=== PATIENT | female | born 1970 | race Caucasian/White ===

== ENCOUNTER 2018-08-22 16:09 | Inpatient (IN) | payer MEDICARE, MEDICAID ==
[~2018-08-22] VITALS: Ht 172.7 cm; Wt 240.1 kg
[2018-08-22] VITALS (15 sets, daily range): BP systolic 66–104; BP diastolic 25–83
--- NOTE | ~2018-08-22 | CN ---
PATIENT NAME:KATIA ROSSI MEDICAL RECORD: [id number] : 66 LOCATION:D. D.2101 ADMIT DATE: 08/22/18 ACCOUNT: [id number] CONSULTING PHYSICIAN: MIHAI GARZA MD REFERRING PHYSICIAN: BAO BRIGGS MD DATE OF CONSULTATION: 08/31/2018 CONSULT REQUESTING PHYSICIAN: Matthew Moseley MD REASON FOR CONSULTATION: Hypoxia and dyspnea. HISTORY OF PRESENT ILLNESS: Ms. Rossi is a 47-year-old female who is morbidly obese, obstructive sleep apnea, and history of DVT and pulmonary embolism times 2. She was on chronic Xarelto and that has been held on this admission. According to the patient, she felt lightheaded and weak. She came into the ER. Her systolic blood pressure was in 70s and 80s and positive Hemoccult stool, but review by Dr. Kuhn and her hematocrit and hemoglobin were stable and there was no evidence of active GI bleeding. She has a cough without sputum production. A little bit sore throat. No fever or chills. No night sweats. REVIEW OF THE SYSTEMS: Mainly in the history of present illness. PAST MEDICAL HISTORY: 1. History of PE and DVT times 2 in the past. 2. Obstructive sleep apnea. She is on CPAP machine. 3. History of allergies. 4. Hypertension. 5. History of GI bleed in December of this year. 6. She has chronic back pain. PAST SURGICAL HISTORY: 1. Hysterectomy. 2. Herniorrhaphy. 3. Cyst removed from ovaries. ALLERGIES: SHE IS ALLERGIC TO CODEINE. MEDICATIONS: 1. She was on Xarelto and that has been on hold. 2. She is on vancomycin now IV and cefepime IV. PERSONAL AND SOCIAL HISTORY: Probably, she is still smoking. FAMILY HISTORY: Significant for lung disease and cancer. REVIEW OF THE SYSTEMS: The detail is not obtainable. PHYSICAL EXAMINATION: GENERAL: The patient is morbidly obese. VITAL SIGNS: Blood pressure is 115/65, pulse is 107, respiration is 22, temperature is 98.6, and SpO2 is 92% on 8 liters nasal cannula. HEENT: Conjunctivae are pink. Sclerae are not icteric. NECK: Neck is supple. No JVD. CHEST: The chest excursion is minimal on both sides. There is no wheeze and no CONSULT REPORT [id number] KATIA ROSSI. HEART: Rhythm regular. Normal sound. No murmur. ABDOMEN: Abdomen is soft. Bowel sounds present. No hepatosplenomegaly. RECTAL: Deferred. EXTREMITIES: No cyanosis. No clubbing. No pedal edema. CENTRAL NERVOUS SYSTEM: The patient is awake and alert. There is no obvious cranial nerve abnormality. The gait was not tested. LABORATORY DATA: CBC; WBC is 24.5, hemoglobin is 10.9, hematocrit 34.7, and the platelet count is 149. Chemistry; sodium 135, potassium 5.2, BUN is 30, creatinine 1.3. Serology; the IgM antibody for Yovanny-Toledo virus is more than 160. Influenza is negative. DIAGNOSTIC DATA: Cardiac echo, the right ventricular systolic pressure is 20.1. CT scan of the chest on 22 of August; the heart is normal in size. There is no pericardial effusion. There is no lung infiltrate. There is no adenopathy. IMPRESSION: 1. Nnavy-rn-nrlmaym hypoxic respiratory failure. The etiology is not clear. The patient's PA pressure is normal. 2. Near syncopal episode. 3. History of DVT and PE times 2. 4. Morbid obesity. 5. Obesity-hypoventilation syndrome. 6. Obstructive sleep apnea. 7. Leukocytosis. 8. Possible infectious mononucleosis. 9. Hyperkalemia. RECOMMENDATION: 1. Continue vancomycin and cefepime. 2. Consult ID. 3. Check the ABG. 4. Continue BiPAP at night. 5. Supplemental oxygen to keep the SpO2 above 90%. 6. Followup labs and chest radiograph. Dr. Moseley, thank you for involving me in the care of Ms. Rossi. TRANSINT:[id number] Voice Confirmation ID: [id number] DOCUMENT ID: [id number] MIHAI GARZA MD at 1711 CC: [id number] DICTATION DATE: 08/31/18 1512 SIGNAL INTELLIGENCE/ELECTRONIC WARFARE: 08/31/18 1620 DIS IN 09/05/18 [facility] [address] [place] [address]
--- NOTE | ~2018-08-22 | MORECARE ---
CASE MANAGEMENT DISCHARGE SUMMARY PATIENT: KATIA MARTINEZ UNIT: [id number] ADM DATE: 08/22/18 AGE: 47 : 66 SEX: F ROOM/BED: D.2101 AUTHOR: BIANCA,DOC PHYSICIAN: REFERRING PHYSICIAN: BAO BRIGGS MD DATE OF SERVICE: 08/28/18 Discharge Plan Patient Name: KATIA MARTINEZ [facility] [facility] 1970 Planned Disposition: Inpatient Rehab Anticipated Discharge Date: 08/29/18 Discharge Date: Expected LOS: 7 Initial Reviewer: [email or web address] Initial Review Date: 08/28/2018 Generated: 08/28/18 6:10 pm Comments DCP- Discharge Planning Updated by [id number]: Indra Green on 08/28/18 4:[address] Patient Name: KATIA MARTINEZ Admission Status: ER Accout number: [id number] Admission Date: 08-22-2018 : 1970 Admission Diagnosis:ACUTE KIDNEY FAILURE, UNSPECIFIED Attending: BAO BRIGGS Current LOS: 6 Anticipated DC Date: 08-29-2018 Planned Disposition: Inpatient Rehab Primary Insurance: MEDICARE A & B PLANNED EXTERNAL PROVIDER: [facility] INPATIENT REHAB Discharge Planning Comments: CM RECEIVED ORDER FOR INPATIENT REHAB PRESCREENING, MET WITH PT IN ROOM TO DISCUSS DISCHARGE PLANNING AND NEEDS. PT REPORTS LIVING AT HOME INDEPENDENTLY AND HER SISTER IS IN THE HOME ALSO IF NEEDED. PT HAS CANE, CPAP AND WALKER FROM [facility]. PT HAS PERSONAL CARE, [facility], 21 HOURS PER WEEK. CM DISCUSSED AVAILABILITY OF HOME HEALTH, REHAB SERVICES AND MEDICAL EQUIPMENT. PT WILL THINK ABOUT INPATIENT REHAB AND IS CONSIDERING JUST GOING HOME SHE IS NOT ABLE TO GET ANY SLEEP IN THE HOSPITAL. PT REPORTS FAMILY WILL PICK HER UP FOR DISCHARGE HOME. IMPORTANT MESSAGE FROM MEDICARE PROVIDED AND EXPLAINED. CM WAITING INPATIENT REHAB PRESCREENING RESULTS FROM [facility] INPATIENT REHAB. Hollow Handle Bench Worker: Indra Green DCPIA - Discharge Planning Initial Assessment Updated by [id number]: Indra Green on 08/28/18 5:04 pm * Is the patient Alert and Oriented? Yes * How many steps to enter\exit or inside your home? ELEVATOR * PCP DR. RONNI TA - PT REPORTS SHE WILL NEVER RETURN TO THIS PRIMARY CARE DOCTOR * Pharmacy [facility] * Preadmission Environment Home with Family * ADLs Independent * Equipment Cane CPAP Walker * Other Equipment [facility] - MEDICAL EQUIPMENT PROVIDER * List name and contact numbers for known caregivers / representatives who currently or will assist patient after discharge: RODO MARTINEZ, BROTHER, * Verbal permission to speak to the caregivers and representatives has been obtained from the patient. N/A * Community resources currently utilized Private Duty Care * Please name any agencies selected above. [facility], M,T,W,F; 21 HOURS PER WEEK * Additional services required to return to the preadmission environment? No * Can the patient safely return to the preadmission environment? Yes * Has this patient been hospitalized within the prior 30 days at any hospital? No Coverage Notice Reviewer: [id number] Shani Green Notice Issued Date-Time: 08/28/2018 14:15 Notice Type: IM Discharge Notice Notice Delivered To: Patient Relationship to Patient: Nurse Licensed Practical Name: Delivery Method: HAND - Hand Delivered Janie Days: Prior Verbal Notification: Recipient Understood Notice: Yes Recipient Signature: Yes Med Rec Note Co-signed by Attending: Coverage Notice Comment: Patient Name: KATIA MARTINEZ Page [phone] at 1711 All edits/amendments must be made on the electronic document DICTATION DATE: 08/28/181709 CORPORATE VP ADVERTISING & ONLINE: KASSIE 08/28/181709 RPT#: [id number] DC DATE: STATUS: ADM IN [facility] [address] [place] [address] END OF REPORT
--- NOTE | ~2018-08-22 | MORECARE ---
CASE MANAGEMENT DISCHARGE SUMMARY PATIENT: KATIA MARTINEZ UNIT: [id number] ADM DATE: 08/22/18 AGE: 47 : 66 SEX: F ROOM/BED: D.2101 AUTHOR: BIANCA,DOC PHYSICIAN: REFERRING PHYSICIAN: BAO BRIGGS MD DATE OF SERVICE: 09/11/18 Discharge Plan Patient Name: [facility]ARTINEZ [facility] [facility] 1970 Planned Disposition: Inpatient Rehab Anticipated Discharge Date: 09/05/18 Discharge Date: 09/05/2018 Expected LOS: 14 Initial Reviewer: [email or web address] Initial Review Date: 08/28/2018 Generated: 09/11/18 9:06 am Comments DCP- Discharge Planning Updated by [email or web address]: Indra Green on 09/05/18 9:[address] Patient Name: KATIA MARTINEZ Encounter No: [id number] : 1970 Primary Insurance: MEDICARE A & B Anticipated DC Date: 09-06-2018 Planned Disposition: Inpatient Rehab External Planned Provider: [facility] INPATIENT REHAB DCP follow-up note: CM RECEIVED INPATIENT REHAB PRESCREENING ORDER, SPOKE TO PT IN ROOM REGARDING REHAB OPTIONS AND LOCATIONS. PT WOULD LIKE TO BE CONSIDERED FOR REHAB AT [place], DOES NOT WANT TO CONSIDER GOING TO A RETIREMENT FACILITY FOR REHAB. PT STATES SHE IS "EXCITED" ABOUT GOING TO REHAB AND REPORTS HER GOAL IS TO REHAB AND GO HOME. CM DISCUSSED THERAPY DOCUMENTING [facility] OF THERAPY; PT STATES SHE IS NOT REFUSING, SHE HAS ASKED THEM TO COME BACK LATER AND THEY DO NOT. PT REPORTS THE DAYS THAT HAPPENED, SHE EITHER HAD DIARREAH OR WAS URINATING FREQUENTLY DUE TO HAVING LASIX. PT REPORTS SHE WILL PARTICIPATE WITH THERAPY AND UNDERSTANDS THAT SHE MUST PARTICIPATE WITH EVERY SESSION OF THERAPY. IMPORTANT MESSAGE FROM MEDICARE PROVIDED AND EXPLAINED. CM WAITING INPATIENT REHAB PRESCREENING BY [facility] INPATIENT REHAB; PT WOULD LIKE TO TALK WITH THE SCREENER. Indra Green DCP- Discharge Planning Updated by [id number]: Indra Green on 08/28/18 4:[address] Patient Name: KATIA MARTINEZ Admission Status: ER Accout number: [id number] Admission Date: 08-22-2018 : 1970 Admission Diagnosis:ACUTE KIDNEY FAILURE, UNSPECIFIED Attending: BAO BRIGGS Current LOS: 6 Anticipated DC Date: 08-29-2018 Planned Disposition: Inpatient Rehab Primary Insurance: MEDICARE A & B PLANNED EXTERNAL PROVIDER: [facility] INPATIENT REHAB Discharge Planning Comments: CM RECEIVED ORDER FOR INPATIENT REHAB PRESCREENING, MET WITH PT IN ROOM TO DISCUSS DISCHARGE PLANNING AND NEEDS. PT REPORTS LIVING AT HOME INDEPENDENTLY AND HER SISTER IS IN THE HOME ALSO IF NEEDED. PT HAS CANE, CPAP AND WALKER FROM [facility]. PT HAS PERSONAL CARE, [facility], 21 HOURS PER WEEK. CM DISCUSSED AVAILABILITY OF HOME HEALTH, REHAB SERVICES AND MEDICAL EQUIPMENT. PT WILL THINK ABOUT INPATIENT REHAB AND IS CONSIDERING JUST GOING HOME SHE IS NOT ABLE TO GET ANY SLEEP IN THE HOSPITAL. PT REPORTS FAMILY WILL PICK HER UP FOR DISCHARGE HOME. IMPORTANT MESSAGE FROM MEDICARE PROVIDED AND EXPLAINED. CM WAITING INPATIENT REHAB PRESCREENING RESULTS FROM [facility] INPATIENT REHAB. Carbon Paste Mixer Operator: Indra Green DCPIA - Discharge Planning Initial Assessment Updated by [email or web address]: Indra Green on 08/28/18 5:04 pm * Is the patient Alert and Oriented? Yes * How many steps to enter\\exit or inside your home? ELEVATOR * PCP DR. RONNI TA - PT REPORTS SHE WILL NEVER RETURN TO THIS PRIMARY CARE DOCTOR * Pharmacy [facility] * Preadmission Environment Home with Family * ADLs Independent * Equipment Cane CPAP Walker * Other Equipment [employer] - MEDICAL EQUIPMENT PROVIDER * List name and contact numbers for known caregivers / representatives who currently or will assist patient after discharge: RODO MARTINEZ, BROTHER, * Verbal permission to speak to the caregivers and representatives has been obtained from the patient. N/A * Community resources currently utilized Private Duty Care * Please name any agencies selected above. [facility], M,T,W,F; 21 HOURS PER WEEK * Additional services required to return to the preadmission environment? No * Can the patient safely return to the preadmission environment? Yes * Has this patient been hospitalized within the prior 30 days at any hospital? No Coverage Notice Reviewer: [id number] - Indra Green Notice Issued Date-Time: 08/28/2018 14:15 Notice Type: IM Discharge Notice Notice Delivered To: Patient Relationship to Patient: Forming Roll Operator Name: Delivery Method: HAND - Hand Delivered Janie Days: Prior Verbal Notification: Recipient Understood Notice: Yes Recipient Signature: Yes Med Rec Note Co-signed by Attending: Coverage Notice Comment: Reviewer: [id number] Shani Green Notice Issued Date-Time: 09/05/2018 10:40 Notice Type: IM Discharge Notice Notice Delivered To: Patient Relationship to Patient: Forming Roll Operator Name: Delivery Method: HAND - Hand Delivered Janie Days: Prior Verbal Notification: Recipient Understood Notice: Yes Recipient Signature: Yes Med Rec Note Co-signed by Attending: Coverage Notice Comment: Last DP export: 09/05/18 10:00 Patient Name: KATIA MARTINEZ Page [phone] at 0807 All edits/amendments must be made on the electronic document DICTATION DATE: 09/11/18805 LIQUEFACTION PLANT OPERATOR: KASSIE 09/11/18805 RPT#: [id number] DC DATE:09/05/18 STATUS: DIS IN [facility] [address] [place] [address] END OF REPORT
--- NOTE | ~2018-08-22 | MORECARE ---
CASE MANAGEMENT DISCHARGE SUMMARY PATIENT: KATIA MARTINEZ UNIT: [id number] ADM DATE: 08/22/18 AGE: 47 : 66 SEX: F ROOM/BED: D.2101 AUTHOR: BIANCA,DOC PHYSICIAN: REFERRING PHYSICIAN: BAO BRIGGS MD DATE OF SERVICE: 09/05/18 Discharge Plan Patient Name: KATIA MARTINEZ [facility] [facility] 1970 Planned Disposition: Inpatient Rehab Anticipated Discharge Date: 09/06/18 Discharge Date: Expected LOS: 15 Initial Reviewer: [id number] Initial Review Date: 08/28/2018 Generated: 09/05/18 11:53 am Comments DCP- Discharge Planning Updated by [email or web address]: Indra Green on 08/28/18 4:[address] Patient Name: KATIA MARTINEZ Admission Status: ER Accout number: [id number] Admission Date: 08-22-2018 : 1970 Admission Diagnosis:ACUTE KIDNEY FAILURE, UNSPECIFIED Attending: BAO BRIGGS Current LOS: 6 Anticipated DC Date: 08-29-2018 Planned Disposition: Inpatient Rehab Primary Insurance: MEDICARE A & B PLANNED EXTERNAL PROVIDER: [facility] INPATIENT REHAB Discharge Planning Comments: CM RECEIVED ORDER FOR INPATIENT REHAB PRESCREENING, MET WITH PT IN ROOM TO DISCUSS DISCHARGE PLANNING AND NEEDS. PT REPORTS LIVING AT HOME INDEPENDENTLY AND HER SISTER IS IN THE HOME ALSO IF NEEDED. PT HAS CANE, CPAP AND WALKER FROM [employer]. PT HAS PERSONAL CARE, [facility], 21 HOURS PER WEEK. CM DISCUSSED AVAILABILITY OF HOME HEALTH, REHAB SERVICES AND MEDICAL EQUIPMENT. PT WILL THINK ABOUT INPATIENT REHAB AND IS CONSIDERING JUST GOING HOME SHE IS NOT ABLE TO GET ANY SLEEP IN THE HOSPITAL. PT REPORTS FAMILY WILL PICK HER UP FOR DISCHARGE HOME. IMPORTANT MESSAGE FROM MEDICARE PROVIDED AND EXPLAINED. CM WAITING INPATIENT REHAB PRESCREENING RESULTS FROM [facility] INPATIENT REHAB. Mineralogy Professor: Indra Green DCPIA - Discharge Planning Initial Assessment Updated by [id number]: Indra Green on 08/28/18 5:04 pm * Is the patient Alert and Oriented? Yes * How many steps to enter\exit or inside your home? ELEVATOR * PCP DR. RONNI TA - PT REPORTS SHE WILL NEVER RETURN TO THIS PRIMARY CARE DOCTOR * Pharmacy [facility] * Preadmission Environment Home with Family * ADLs Independent * Equipment Cane CPAP Walker * Other Equipment [employer] - MEDICAL EQUIPMENT PROVIDER * List name and contact numbers for known caregivers / representatives who currently or will assist patient after discharge: RODO MARTINEZ, BROTHER, * Verbal permission to speak to the caregivers and representatives has been obtained from the patient. N/A * Community resources currently utilized Private Duty Care * Please name any agencies selected above. [facility], M,T,W,F; 21 HOURS PER WEEK * Additional services required to return to the preadmission environment? No * Can the patient safely return to the preadmission environment? Yes * Has this patient been hospitalized within the prior 30 days at any hospital? No Coverage Notice Reviewer: [id number] Shani Green Notice Issued Date-Time: 08/28/2018 14:15 Notice Type: IM Discharge Notice Notice Delivered To: Patient Relationship to Patient: Property Handler Name: Delivery Method: HAND - Hand Delivered Janie Days: Prior Verbal Notification: Recipient Understood Notice: Yes Recipient Signature: Yes Med Rec Note Co-signed by Attending: Coverage Notice Comment: Reviewer: [id number] Green Notice Issued Date-Time: 09/05/2018 10:40 Notice Type: IM Discharge Notice Notice Delivered To: Patient Relationship to Patient: Property Handler Name: Delivery Method: HAND - Hand Delivered Janie Days: Prior Verbal Notification: Recipient Understood Notice: Yes Recipient Signature: Yes Med Rec Note Co-signed by Attending: Coverage Notice Comment: Last DP export: 08/28/18 4:11 Patient Name: KATIA MARTINEZ Page [phone] at 1053 All edits/amendments must be made on the electronic document DICTATION DATE: 09/05/18 1053 TRIPE WASHER: KASSIE 09/05/18 1053 RPT#: [id number] ME DATE: STATUS: ADM IN [facility] [address] [place] [address] END OF REPORT
--- NOTE | ~2018-08-22 | MORECARE ---
CASE MANAGEMENT DISCHARGE SUMMARY PATIENT: KATIA MARTINEZ UNIT: [id number] ADM DATE: 08/22/18 AGE: 47 : 66 SEX: F ROOM/BED: D.2101 AUTHOR: BIANCA,DOC PHYSICIAN: REFERRING PHYSICIAN: BAO BRIGGS MD DATE OF SERVICE: 09/05/18 Discharge Plan Patient Name: KATIA MARTINEZ [facility] [facility] 1970 Planned Disposition: Inpatient Rehab Anticipated Discharge Date: 09/06/18 Discharge Date: Expected LOS: 15 Initial Reviewer: [id number] Initial Review Date: 08/28/2018 Generated: 09/05/18 12:00 pm Comments DCP- Discharge Planning Updated by [id number]: Indra Green on 09/05/18 9:[address] Patient Name: KATIA MARTINEZ Encounter No: [id number] : 1970 Primary Insurance: MEDICARE A & B Anticipated DC Date: 09-06-2018 Planned Disposition: Inpatient Rehab External Planned Provider: [facility] INPATIENT REHAB DCP follow-up note: CM RECEIVED INPATIENT REHAB PRESCREENING ORDER, SPOKE TO PT IN ROOM REGARDING REHAB OPTIONS AND LOCATIONS. PT WOULD LIKE TO BE CONSIDERED FOR REHAB AT [place], DOES NOT WANT TO CONSIDER GOING TO A [facility] FACILITY FOR REHAB. PT STATES SHE IS "EXCITED" ABOUT GOING TO REHAB AND REPORTS HER GOAL IS TO REHAB AND GO HOME. CM DISCUSSED THERAPY DOCUMENTING [facility] REFUS[facility] OF THERAPY; PT STATES SHE IS NOT REFUSING, SHE HAS ASKED THEM TO COME BACK LATER AND THEY DO NOT. PT REPORTS THE DAYS THAT HAPPENED, SHE EITHER HAD DIARREAH OR WAS URINATING FREQUENTLY DUE TO HAVING LASIX. PT REPORTS SHE WILL PARTICIPATE WITH THERAPY AND UNDERSTANDS THAT SHE MUST PARTICIPATE WITH EVERY SESSION OF THERAPY. IMPORTANT MESSAGE FROM MEDICARE PROVIDED AND EXPLAINED. CM WAITING INPATIENT REHAB PRESCREENING BY [facility] INPATIENT REHAB; PT WOULD LIKE TO TALK WITH THE SCREENER. Indra Green DCP- Discharge Planning Updated by [email or web address]: Indra Green on 08/28/18 4:[address] Patient Name: KATIA MARTINEZ Admission Status: ER Accout number: [id number] Admission Date: 08-22-2018 : 1970 Admission Diagnosis:ACUTE KIDNEY FAILURE, UNSPECIFIED Attending: BAO BRIGGS Current LOS: 6 Anticipated DC Date: 08-29-2018 Planned Disposition: Inpatient Rehab Primary Insurance: MEDICARE A & B PLANNED EXTERNAL PROVIDER: [facility] INPATIENT REHAB Discharge Planning Comments: CM RECEIVED ORDER FOR INPATIENT REHAB PRESCREENING, MET WITH PT IN ROOM TO DISCUSS DISCHARGE PLANNING AND NEEDS. PT REPORTS LIVING AT HOME INDEPENDENTLY AND HER SISTER IS IN THE HOME ALSO IF NEEDED. PT HAS CANE, CPAP AND WALKER FROM [facility]. PT HAS PERSONAL CARE, [facility], 21 HOURS PER WEEK. CM DISCUSSED AVAILABILITY OF HOME HEALTH, REHAB SERVICES AND MEDICAL EQUIPMENT. PT WILL THINK ABOUT INPATIENT REHAB AND IS CONSIDERING JUST GOING HOME SHE IS NOT ABLE TO GET ANY SLEEP IN THE HOSPITAL. PT REPORTS FAMILY WILL PICK HER UP FOR DISCHARGE HOME. IMPORTANT MESSAGE FROM MEDICARE PROVIDED AND EXPLAINED. CM WAITING INPATIENT REHAB PRESCREENING RESULTS FROM [facility] INPATIENT REHAB. Table Filler: Indra Green DCPIA - Discharge Planning Initial Assessment Updated by [id number]: Indra Green on 08/28/18 5:04 pm * Is the patient Alert and Oriented? Yes * How many steps to enter\\exit or inside your home? ELEVATOR * PCP DR. RONNI TA - PT REPORTS SHE WILL NEVER RETURN TO THIS PRIMARY CARE DOCTOR * Pharmacy [facility] * Preadmission Environment Home with Family * ADLs Independent * Equipment Cane CPAP Walker * Other Equipment [employer] - MEDICAL EQUIPMENT PROVIDER * List name and contact numbers for known caregivers / representatives who currently or will assist patient after discharge: RODO MARTINEZ, BROTHER, * Verbal permission to speak to the caregivers and representatives has been obtained from the patient. N/A * Community resources currently utilized Private Duty Care * Please name any agencies selected above. [facility], M,T,W,F; 21 HOURS PER WEEK * Additional services required to return to the preadmission environment? No * Can the patient safely return to the preadmission environment? Yes * Has this patient been hospitalized within the prior 30 days at any hospital? No Coverage Notice Reviewer: [id number] - Indra Green Notice Issued Date-Time: 08/28/2018 14:15 Notice Type: IM Discharge Notice Notice Delivered To: Patient Relationship to Patient: Senior Software Developer Name: Delivery Method: HAND - Hand Delivered Janie Days: Prior Verbal Notification: Recipient Understood Notice: Yes Recipient Signature: Yes Med Rec Note Co-signed by Attending: Coverage Notice Comment: Reviewer: [id number] - Indra Green Notice Issued Date-Time: 09/05/2018 10:40 Notice Type: IM Discharge Notice Notice Delivered To: Patient Relationship to Patient: Senior Software Developer Name: Delivery Method: HAND - Hand Delivered Janie Days: Prior Verbal Notification: Recipient Understood Notice: Yes Recipient Signature: Yes Med Rec Note Co-signed by Attending: Coverage Notice Comment: Last DP export: 09/05/18 9:53 Patient Name: KATIA MARTINEZ Page [phone] at 1100 All edits/amendments must be made on the electronic document DICTATION DATE: 09/05/189 AIR CONTROL ELECTRONICS OPERATOR: KASSIE 09/05/18 1059 RPT#: [id number] DC DATE: STATUS: ADM IN [facility] [address] [place] [address] END OF REPORT
[2018-08-22] MEDS ORDERED: XARELTO10 MG PO (16:28)
[2018-08-22] MEDS ORDERED: PRINZIDE 20/12.1 TA1 PO (16:28)
[2018-08-22] MEDS ORDERED: BUPROPION HCL100 MG PO (16:41)
[2018-08-22 17:29] LABS: EOSINOPHILS 1.5 % (0-7); HEMOGLOBIN 11.8 g/dL (12-16); IMMATURE GRANULOCYTES 0.4 % (0-5); LYMPHOCYTES 47.4 % (15-50); MCH 29.1 pg (26.0-34.0); MCHC 32.8 g/dL (31.0-37.0); MCV 88.9 fL (80.0-100.0); MEAN PLATELET VOLUME 11.1 fL (7.4-10.4); MONOCYTES 6.4 % (2-11); NEUTROPHILS 41.3 % (40-80); PLATELET COUNT 260 10x3/uL (130-400); RBC 4.05 10x6/uL (4.00-5.40); RDW 14.3 % (11.5-14.5)
[2018-08-22 18:45] LABS: HCG SERUM NEGATIVE (NEGATIVE)
[2018-08-22 18:50] LABS: ALBUMIN 2.3 g/dL (3.4-5.0); ALKALINE PHOSPHATASE 167 U/L (46-116); ALT (SGPT) 31 U/L (10-68); BILIRUBIN - TOTAL 0.51 mg/dL (0.2-1.3); CALC OSMOLALITY 279 mosm/kg (275-300); CALCIUM 8.4 mg/dL (8.5-10.1); CARBON DIOXIDE 23.3 mmol/L (21.0-32.0); CHLORIDE - SERUM 96 mmol/L (98-107); CREATININE - SERUM 5.4 mg/dL (0.6-1.3); GLUCOSE 107 mg/dL (74-106); POTASSIUM - SERUM 5.3 mmol/L (3.5-5.1); PROTEIN - SERUM 6.9 g/dL (6.4-8.2); SODIUM 128 mmol/L (136-145); UREA NITROGEN 78 mg/dL (7-18); eGFR NON AFRICAN AMERICAN 9 mL/min (90-120)
[2018-08-22 19:00] LABS: CKMB 1.6 U/L (0.0-3.6); CREATINE KINASE 89 UL (21-215); LIPASE 116 U/L (73-393); MAGNESIUM - SERUM 2.1 mg/dL (1.8-2.4); THYROID STIMULATING HORMONE 2.04 uIU/mL (0.36-3.74); TROPONIN-I < 0.017 ng/mL (0.000-0.060)
[2018-08-22 21:09] LABS: APPEARANCE HAZY (CLEAR); COLOR DK YELLOW (YELLOW)
[2018-08-22 21:10] LABS: BILIRUBIN NEGATIVE (NEGATIVE); GLUCOSE NEGATIVE (NEGATIVE); KETONE NEGATIVE (NEGATIVE); NITRITE NEGATIVE (NEGATIVE); PROTEIN TRACE mg/dL (NEGATIVE); SPECIFIC GRAVITY 1.025 (1.005-1.020); UROBILINOGEN NORMAL (NORMAL)
[2018-08-22 21:12] LABS: BACTERIA MANY /hpf (NONE SEEN)
[2018-08-23] VITALS (60 sets, daily range): BP systolic 59–117; BP diastolic 27–89; BMI 71.7; BMI 72.7
[2018-08-23 01:17] LABS: BASOPHILS 2.3 % (0-2); EOSINOPHILS 1.5 % (0-7); HEMATOCRIT 33.2 % (36.0-48.0); HEMOGLOBIN 11.5 g/dL (12-16); IMMATURE GRANULOCYTES 0.6 % (0-5); LYMPHOCYTES 47.2 % (15-50); MCH 30.3 pg (26.0-34.0); MCHC 34.6 g/dL (31.0-37.0); MCV 87.6 fL (80.0-100.0); MEAN PLATELET VOLUME 10.9 fL (7.4-10.4); MONOCYTES 7.2 % (2-11); NEUTROPHILS 41.2 % (40-80); PLATELET COUNT 141 10x3/uL (130-400); RBC 3.79 10x6/uL (4.00-5.40); RDW 14.3 % (11.5-14.5)
[2018-08-23 01:35] LABS: ALBUMIN 2.1 g/dL (3.4-5.0); ANION GAP 16.4 mmol/L (8-16); BILIRUBIN - TOTAL 0.54 mg/dL (0.2-1.3); CALCIUM 7.5 mg/dL (8.5-10.1); CARBON DIOXIDE 18.9 mmol/L (21.0-32.0); CREATININE - SERUM 4.5 mg/dL (0.6-1.3); POTASSIUM - SERUM 5.3 mmol/L (3.5-5.1); PROTEIN - SERUM 6.3 g/dL (6.4-8.2)
[2018-08-23 07:10] LABS: ALBUMIN 2.2 g/dL (3.4-5.0); ANION GAP 15.5 mmol/L (8-16); BILIRUBIN - TOTAL 0.46 mg/dL (0.2-1.3); CALCIUM 7.5 mg/dL (8.5-10.1); CARBON DIOXIDE 20.7 mmol/L (21.0-32.0); CREATININE - SERUM 3.6 mg/dL (0.6-1.3); POTASSIUM - SERUM 5.2 mmol/L (3.5-5.1); PROTEIN - SERUM 6.2 g/dL (6.4-8.2)
[2018-08-23 07:12] LABS: BASOPHILS 2.7 % (0-2); EOSINOPHILS 1.1 % (0-7); HEMATOCRIT 35.4 % (36.0-48.0); HEMOGLOBIN 11.4 g/dL (12-16); IMMATURE GRANULOCYTES 0.5 % (0-5); MCH 28.6 pg (26.0-34.0); MCHC 32.2 g/dL (31.0-37.0); MCV 88.9 fL (80.0-100.0); MEAN PLATELET VOLUME 10.9 fL (7.4-10.4); NEUTROPHILS 38.7 % (40-80); RBC 3.98 10x6/uL (4.00-5.40); RDW 14.3 % (11.5-14.5); WBC 13.4 10x3/uL (4.8-10.8)
[2018-08-23 07:22] LABS: PLATELET COUNT 276 10x3/uL (130-400)
[2018-08-23 09:55] LABS: % SATURATION 18 % (15-55); IRON 38 ug/dl (35-150); TOTAL IRON BIND CAPACITY 203 ug/dl (260-445); UNSAT IRON BIND CAPACITY 165 ug/dl (150-375)
[2018-08-24] VITALS (13 sets, daily range): BP systolic 103–137; BP diastolic 29–92
[2018-08-24 05:44] LABS: HEMATOCRIT 34.1 % (36.0-48.0); MCH 28.9 pg (26.0-34.0); MCHC 32.3 g/dL (31.0-37.0); MCV 89.7 fL (80.0-100.0); MEAN PLATELET VOLUME 10.6 fL (7.4-10.4); PLATELET COUNT 248 10x3/uL (130-400); RDW 14.6 % (11.5-14.5); WBC 13.5 10x3/uL (4.8-10.8)
[2018-08-24 06:04] LABS: CALCIUM 7.8 mg/dL (8.5-10.1); CARBON DIOXIDE 21.9 mmol/L (21.0-32.0); POTASSIUM - SERUM 4.9 mmol/L (3.5-5.1)
[2018-08-24 06:06] LABS: CREATININE - SERUM 2.1 mg/dL (0.6-1.3)
[2018-08-24 06:56] LABS: EOSINOPHILS 3 % (0-7); LYMPHOCYTES 44 % (15-50); MONOCYTES 8 % (2-11); NEUTROPHILS 35 % (40-80); PLATELET ESTIMATE NORMAL
[2018-08-24 06:57] LABS: ANISOCYTOSIS OCC; ROULEAUX OCC
[2018-08-24 08:19] LABS: FOLATE (FOLIC ACID) - SERUM 8.5 ng/mL (>3.0)
[2018-08-25 03:00] VITALS: BP 124/47; BP 98/41
[2018-08-25 04:38] LABS: BASOPHILS 3.3 % (0-2); EOSINOPHILS 1.1 % (0-7); HEMATOCRIT 33.4 % (36.0-48.0); HEMOGLOBIN 10.8 g/dL (12-16); IMMATURE GRANULOCYTES 0.5 % (0-5); LYMPHOCYTES 57.3 % (15-50); MCH 29.4 pg (26.0-34.0); MCHC 32.3 g/dL (31.0-37.0); MEAN PLATELET VOLUME 10.4 fL (7.4-10.4); MONOCYTES 7.6 % (2-11); NEUTROPHILS 30.2 % (40-80); PLATELET COUNT 217 10x3/uL (130-400); RBC 3.67 10x6/uL (4.00-5.40); RDW 14.8 % (11.5-14.5); WBC 15.8 10x3/uL (4.8-10.8)
[2018-08-25 05:25] LABS: ANION GAP 12.6 mmol/L (8-16); CARBON DIOXIDE 22.8 mmol/L (21.0-32.0); CREATININE - SERUM 1.9 mg/dL (0.6-1.3); POTASSIUM - SERUM 5.4 mmol/L (3.5-5.1)
[2018-08-25 08:07] LABS: CREATININE - URINE 159.6 mg/dL (30-125); PROTEIN - URINE 72.6 mg/dL (0.0-11.9)
[2018-08-25 11:00] VITALS: BP 97/30
[2018-08-25 21:22] VITALS: BP 92/35
[2018-08-26 02:11] VITALS: BP 101/44
[2018-08-26 06:40] VITALS: BP 75/33
[2018-08-26 08:42] VITALS: BP 86/35
[2018-08-26 16:01] LABS: HEMATOCRIT 35.4 % (36.0-48.0); HEMOGLOBIN 11.1 g/dL (12-16); MCH 28.5 pg (26.0-34.0); MCHC 31.4 g/dL (31.0-37.0); MEAN PLATELET VOLUME 10.5 fL (7.4-10.4); PLATELET COUNT 175 10x3/uL (130-400); RBC 3.89 10x6/uL (4.00-5.40); WBC 16.7 10x3/uL (4.8-10.8)
[2018-08-26 16:10] LABS: MONO NEGATIVE (NEGATIVE)
[2018-08-26 16:12] LABS: ALBUMIN 1.9 g/dL (3.4-5.0); ANION GAP 14.8 mmol/L (8-16); BILIRUBIN - TOTAL 0.33 mg/dL (0.2-1.3); CREATININE - SERUM 2.7 mg/dL (0.6-1.3); POTASSIUM - SERUM 5.8 mmol/L (3.5-5.1); PROTEIN - SERUM 6.1 g/dL (6.4-8.2)
[2018-08-26 16:39] LABS: EOSINOPHILS 1 % (0-7); LYMPHOCYTES 36 % (15-50); MONOCYTES 10 % (2-11); NEUTROPHILS 49 % (40-80); PLATELET ESTIMATE NORMAL; PLATELET MORPHOLOGY NORMAL PLT MORPH
[2018-08-26 17:08] VITALS: BP 80/62
[2018-08-26 20:30] VITALS: BP 111/78
[2018-08-27] VITALS (7 sets, daily range): BP systolic 79–134; BP diastolic 24–90
[2018-08-27 07:14] LABS: ANION GAP 15.7 mmol/L (8-16); CALCIUM 7.7 mg/dL (8.5-10.1); CARBON DIOXIDE 19.4 mmol/L (21.0-32.0); CREATININE - SERUM 3.1 mg/dL (0.6-1.3)
[2018-08-27 07:21] LABS: POTASSIUM - SERUM 6.1 mmol/L (3.5-5.1)
[2018-08-27 07:29] LABS: BASOPHILS 3.1 % (0-2); EOSINOPHILS 1.5 % (0-7); HEMATOCRIT 34.4 % (36.0-48.0); HEMOGLOBIN 11.2 g/dL (12-16); LYMPHOCYTES 52.8 % (15-50); MCH 29.1 pg (26.0-34.0); MCHC 32.6 g/dL (31.0-37.0); MCV 89.4 fL (80.0-100.0); MEAN PLATELET VOLUME 10.8 fL (7.4-10.4); NEUTROPHILS 31.6 % (40-80); PLATELET COUNT 150 10x3/uL (130-400); RBC 3.85 10x6/uL (4.00-5.40); RDW 14.9 % (11.5-14.5); WBC 18.5 10x3/uL (4.8-10.8)
[2018-08-27 13:02] LABS: BASOPHILS 3.8 % (0-2); EOSINOPHILS 1.6 % (0-7); HEMATOCRIT 34.4 % (36.0-48.0); HEMOGLOBIN 10.9 g/dL (12-16); IMMATURE GRANULOCYTES 0.6 % (0-5); LYMPHOCYTES 54.5 % (15-50); MCH 28.9 pg (26.0-34.0); MCHC 31.7 g/dL (31.0-37.0); MCV 91.2 fL (80.0-100.0); MEAN PLATELET VOLUME 11.1 fL (7.4-10.4); NEUTROPHILS 32.5 % (40-80); PLATELET COUNT 156 10x3/uL (130-400); RBC 3.77 10x6/uL (4.00-5.40); RDW 15.2 % (11.5-14.5); WBC 17.1 10x3/uL (4.8-10.8)
[2018-08-27 13:14] LABS: ANION GAP 17.4 mmol/L (8-16); CALCIUM 8.1 mg/dL (8.5-10.1); CARBON DIOXIDE 18.9 mmol/L (21.0-32.0)
[2018-08-27 13:17] LABS: POTASSIUM - SERUM 6.3 mmol/L (3.5-5.1)
[2018-08-28 01:15] VITALS: BP 89/41
[2018-08-28 04:17] LABS: BASOPHILS 2.7 % (0-2); EOSINOPHILS 1.2 % (0-7); HEMATOCRIT 33.9 % (36.0-48.0); IMMATURE GRANULOCYTES 0.5 % (0-5); LYMPHOCYTES 58.8 % (15-50); MCH 28.9 pg (26.0-34.0); MCHC 32.4 g/dL (31.0-37.0); MONOCYTES 7.5 % (2-11); NEUTROPHILS 29.3 % (40-80); PLATELET COUNT 152 10x3/uL (130-400); WBC 16.8 10x3/uL (4.8-10.8)
[2018-08-28 04:19] LABS: MCV 89.2 fL (80.0-100.0)
[2018-08-28 04:30] LABS: ANION GAP 13.4 mmol/L (8-16); CALCIUM 7.8 mg/dL (8.5-10.1); CARBON DIOXIDE 23.6 mmol/L (21.0-32.0); CREATININE - SERUM 2.5 mg/dL (0.6-1.3)
[2018-08-28 04:45] VITALS: BP 93/40
[2018-08-28 08:47] VITALS: BP 94/22
[2018-08-28 11:34] VITALS: BP 89/52
[2018-08-28 15:53] VITALS: BP 96/29
[2018-08-28 21:46] VITALS: BP 118/43
[2018-08-29 02:34] VITALS: BP 100/39
[2018-08-29 05:12] LABS: BASOPHILS 3.2 % (0-2); EOSINOPHILS 1.1 % (0-7); HEMATOCRIT 34.7 % (36.0-48.0); HEMOGLOBIN 11.1 g/dL (12-16); IMMATURE GRANULOCYTES 0.6 % (0-5); LYMPHOCYTES 56.1 % (15-50); MCH 28.6 pg (26.0-34.0); MCV 89.4 fL (80.0-100.0); MONOCYTES 9.4 % (2-11); NEUTROPHILS 29.6 % (40-80); PLATELET COUNT 156 10x3/uL (130-400); RBC 3.88 10x6/uL (4.00-5.40); WBC 15.2 10x3/uL (4.8-10.8)
[2018-08-29 05:32] LABS: ALBUMIN 1.7 g/dL (3.4-5.0); BILIRUBIN - TOTAL 0.57 mg/dL (0.2-1.3); CALCIUM 7.5 mg/dL (8.5-10.1); MAGNESIUM - SERUM 1.7 mg/dL (1.8-2.4)
[2018-08-29 05:35] LABS: CREATININE - SERUM 1.8 mg/dL (0.6-1.3)
[2018-08-29 06:34] VITALS: BP 81/46
[2018-08-29 08:20] VITALS: BP 115/45
[2018-08-29 12:23] VITALS: BP 96/61
[2018-08-29 13:18] LABS: EBV - EARLY ANTIGEN AB IGG <9.0 U/mL (0.0-8.9); EBV - NUCLEAR ANTIGEN AB IGG 98.8 U/mL (0.0-17.9); EBV VIRAL CAPSID AB IGG >600.0 U/mL (0.0-17.9); EBV VIRAL CAPSID AB IGM >160.0 U/mL (0.0-35.9)
[2018-08-29 20:36] VITALS: BP 101/40
[2018-08-30] VITALS: BP 95/52
[2018-08-30 04:00] VITALS: BP 96/46
[2018-08-30 05:57] LABS: BASOPHILS 4.1 % (0-2); EOSINOPHILS 0.9 % (0-7); HEMOGLOBIN 11.1 g/dL (12-16); IMMATURE GRANULOCYTES 0.7 % (0-5); LYMPHOCYTES 61.1 % (15-50); MCH 28.8 pg (26.0-34.0); MCHC 31.7 g/dL (31.0-37.0); MCV 90.9 fL (80.0-100.0); MEAN PLATELET VOLUME 10.8 fL (7.4-10.4); MONOCYTES 12.2 % (2-11); PLATELET COUNT 153 10x3/uL (130-400); RBC 3.85 10x6/uL (4.00-5.40); WBC 18.1 10x3/uL (4.8-10.8)
[2018-08-30 06:21] LABS: ALBUMIN 1.7 g/dL (3.4-5.0); ANION GAP 9.5 mmol/L (8-16); BILIRUBIN - TOTAL 0.48 mg/dL (0.2-1.3); CALCIUM 7.5 mg/dL (8.5-10.1); CARBON DIOXIDE 29.2 mmol/L (21.0-32.0); MAGNESIUM - SERUM 1.8 mg/dL (1.8-2.4); POTASSIUM - SERUM 4.7 mmol/L (3.5-5.1); PROTEIN - SERUM 5.8 g/dL (6.4-8.2)
[2018-08-30 06:31] LABS: CREATININE - SERUM 1.3 mg/dL (0.6-1.3)
[2018-08-30 08:35] VITALS: BP 115/57
[2018-08-30 11:50] VITALS: BP 115/52
[2018-08-30 15:44] VITALS: BP 121/71
[2018-08-30 20:00] VITALS: BP 106/58
[2018-08-31 04:00] VITALS: BP 100/60
[2018-08-31 06:46] LABS: ALBUMIN 1.7 g/dL (3.4-5.0); ANION GAP 7.5 mmol/L (8-16); BILIRUBIN - TOTAL 0.42 mg/dL (0.2-1.3); CALCIUM 7.6 mg/dL (8.5-10.1); CARBON DIOXIDE 30.7 mmol/L (21.0-32.0); CREATININE - SERUM 1.3 mg/dL (0.6-1.3); MAGNESIUM - SERUM 1.8 mg/dL (1.8-2.4); POTASSIUM - SERUM 5.2 mmol/L (3.5-5.1); PROTEIN - SERUM 5.8 g/dL (6.4-8.2)
[2018-08-31 06:51] LABS: HEMATOCRIT 34.7 % (36.0-48.0); HEMOGLOBIN 10.9 g/dL (12-16); MCH 28.8 pg (26.0-34.0); MCHC 31.4 g/dL (31.0-37.0); MCV 91.8 fL (80.0-100.0); MEAN PLATELET VOLUME 10.6 fL (7.4-10.4); PLATELET COUNT 149 10x3/uL (130-400); RBC 3.78 10x6/uL (4.00-5.40); WBC 24.5 10x3/uL (4.8-10.8)
[2018-08-31 07:55] LABS: ANISOCYTOSIS OCC; EOSINOPHILS 1 % (0-7); HYPOCHROMASIA OCC; LYMPHOCYTES 46 % (15-50); MONOCYTES 15 % (2-11); NEUTROPHILS 36 % (40-80); PLATELET ESTIMATE NORMAL; ROULEAUX OCC
[2018-08-31 08:13] VITALS: BP 113/68
[2018-08-31 11:54] VITALS: BP 115/65
[2018-08-31 15:24] LABS: HEPATITIS C ANTIBODY 0.3 S/CO RAT (0.0-0.9)
[2018-08-31 18:57] VITALS: Ht 172.7 cm; Wt 240.1 kg
[2018-08-31 21:57] VITALS: BP 103/54
[2018-09-01 01:04] VITALS: BP 118/52
[2018-09-01 05:40] VITALS: BP 107/62
[2018-09-01 07:46] LABS: BASOPHILS 3.2 % (0-2); EOSINOPHILS 1.9 % (0-7); HEMATOCRIT 33.5 % (36.0-48.0); HEMOGLOBIN 10.3 g/dL (12-16); IMMATURE GRANULOCYTES 0.7 % (0-5); LYMPHOCYTES 65.1 % (15-50); MCH 28.1 pg (26.0-34.0); MCHC 30.7 g/dL (31.0-37.0); MCV 91.5 fL (80.0-100.0); MEAN PLATELET VOLUME 10.2 fL (7.4-10.4); MONOCYTES 10.2 % (2-11); NEUTROPHILS 18.9 % (40-80); PLATELET COUNT 168 10x3/uL (130-400); RBC 3.66 10x6/uL (4.00-5.40); WBC 21.6 10x3/uL (4.8-10.8)
[2018-09-01 07:58] LABS: ALBUMIN 1.7 g/dL (3.4-5.0); ANION GAP 6.4 mmol/L (8-16); BILIRUBIN - TOTAL 0.38 mg/dL (0.2-1.3); CALCIUM 7.5 mg/dL (8.5-10.1); CARBON DIOXIDE 30.3 mmol/L (21.0-32.0); CREATININE - SERUM 1.2 mg/dL (0.6-1.3); MAGNESIUM - SERUM 1.8 mg/dL (1.8-2.4); POTASSIUM - SERUM 4.7 mmol/L (3.5-5.1); PROTEIN - SERUM 5.7 g/dL (6.4-8.2)
[2018-09-01 12:18] VITALS: BP 120/52
[2018-09-01 16:06] VITALS: BP 127/60
[2018-09-01 20:12] VITALS: BP 111/53
[2018-09-02] VITALS (7 sets, daily range): BP systolic 95–130; BP diastolic 49–78
[2018-09-02 06:36] LABS: BASOPHILS 3.6 % (0-2); EOSINOPHILS 2.4 % (0-7); HEMATOCRIT 35.4 % (36.0-48.0); HEMOGLOBIN 10.8 g/dL (12-16); IMMATURE GRANULOCYTES 0.7 % (0-5); MCH 28.5 pg (26.0-34.0); MCHC 30.5 g/dL (31.0-37.0); MCV 93.4 fL (80.0-100.0); MEAN PLATELET VOLUME 10.2 fL (7.4-10.4); NEUTROPHILS 17.3 % (40-80); RBC 3.79 10x6/uL (4.00-5.40); RDW 15.3 % (11.5-14.5); WBC 19.1 10x3/uL (4.8-10.8)
[2018-09-02 06:40] LABS: PLATELET COUNT 127 10x3/uL (130-400)
[2018-09-02 07:05] LABS: ALBUMIN 1.7 g/dL (3.4-5.0); ANION GAP 5.9 mmol/L (8-16); BILIRUBIN - TOTAL 0.4 mg/dL (0.2-1.3); CALCIUM 7.8 mg/dL (8.5-10.1); CARBON DIOXIDE 31.3 mmol/L (21.0-32.0); CREATININE - SERUM 1.1 mg/dL (0.6-1.3); POTASSIUM - SERUM 5.2 mmol/L (3.5-5.1); PROTEIN - SERUM 5.9 g/dL (6.4-8.2); VANCOMYCIN - RANDOM 24.9 ug/mL (10.0-20.0)
[2018-09-03 03:45] VITALS: BP 103/58
[2018-09-03 10:05] VITALS: BP 107/45
[2018-09-03 10:38] LABS: BASOPHILS 2.7 % (0-2); EOSINOPHILS 1.5 % (0-7); HEMATOCRIT 35.9 % (36.0-48.0); HEMOGLOBIN 11.1 g/dL (12-16); IMMATURE GRANULOCYTES 0.7 % (0-5); LYMPHOCYTES 67.4 % (15-50); MCH 28.6 pg (26.0-34.0); MCHC 30.9 g/dL (31.0-37.0); MCV 92.5 fL (80.0-100.0); MEAN PLATELET VOLUME 9.5 fL (7.4-10.4); MONOCYTES 6.8 % (2-11); NEUTROPHILS 20.9 % (40-80); RBC 3.88 10x6/uL (4.00-5.40); WBC 18.9 10x3/uL (4.8-10.8)
[2018-09-03 10:43] LABS: PLATELET COUNT 176 10x3/uL (130-400)
[2018-09-03 10:53] LABS: ANION GAP 4.2 mmol/L (8-16); BILIRUBIN - TOTAL 0.35 mg/dL (0.2-1.3); CALCIUM 7.7 mg/dL (8.5-10.1); CREATININE - SERUM 1.3 mg/dL (0.6-1.3); MAGNESIUM - SERUM 1.7 mg/dL (1.8-2.4); PROTEIN - SERUM 6.6 g/dL (6.4-8.2)
[2018-09-03 10:54] LABS: POTASSIUM - SERUM 4.2 mmol/L (3.5-5.1)
[2018-09-03 13:23] VITALS: BP 108/56
[2018-09-03 19:07] VITALS: BP 122/58
[2018-09-03 20:30] VITALS: BP 121/94
[2018-09-04 02:08] VITALS: BP 103/50
[2018-09-04 04:30] VITALS: BP 100/62
[2018-09-04 04:40] LABS: BASOPHILS 2.8 % (0-2); EOSINOPHILS 1.6 % (0-7); HEMATOCRIT 33.5 % (36.0-48.0); HEMOGLOBIN 10.4 g/dL (12-16); IMMATURE GRANULOCYTES 0.7 % (0-5); MCH 28.4 pg (26.0-34.0); MCV 91.5 fL (80.0-100.0); MEAN PLATELET VOLUME 9.8 fL (7.4-10.4); MONOCYTES 9.4 % (2-11); NEUTROPHILS 20.5 % (40-80); PLATELET COUNT 205 10x3/uL (130-400); RBC 3.66 10x6/uL (4.00-5.40); RDW 14.9 % (11.5-14.5); WBC 17.4 10x3/uL (4.8-10.8)
[2018-09-04 05:11] LABS: ALBUMIN 1.8 g/dL (3.4-5.0); ANION GAP 7.3 mmol/L (8-16); BILIRUBIN - TOTAL 0.36 mg/dL (0.2-1.3); CALCIUM 7.7 mg/dL (8.5-10.1); CARBON DIOXIDE 33.6 mmol/L (21.0-32.0); CREATININE - SERUM 1.3 mg/dL (0.6-1.3); MAGNESIUM - SERUM 1.6 mg/dL (1.8-2.4); POTASSIUM - SERUM 3.9 mmol/L (3.5-5.1); PROTEIN - SERUM 6.1 g/dL (6.4-8.2)
[2018-09-04 06:07] LABS: HIV AB INTERPRETATION HIV-2 Indet. (())
[2018-09-04 07:20] VITALS: BP 127/68
[2018-09-04 13:13] VITALS: BP 118/57
[2018-09-04 20:00] VITALS: BP 110/57
[2018-09-05 01:24] VITALS: BP 117/60
[2018-09-05 04:43] LABS: BASOPHILS 1.6 % (0-2); HEMATOCRIT 32.6 % (36.0-48.0); IMMATURE GRANULOCYTES 0.5 % (0-5); LYMPHOCYTES 65.3 % (15-50); MCH 28.2 pg (26.0-34.0); MCHC 30.7 g/dL (31.0-37.0); MCV 91.8 fL (80.0-100.0); MEAN PLATELET VOLUME 9.8 fL (7.4-10.4); MONOCYTES 8.1 % (2-11); NEUTROPHILS 23.5 % (40-80); PLATELET COUNT 209 10x3/uL (130-400); RBC 3.55 10x6/uL (4.00-5.40); RDW 14.9 % (11.5-14.5); WBC 16.4 10x3/uL (4.8-10.8)
[2018-09-05 05:57] LABS: ALBUMIN 1.9 g/dL (3.4-5.0); ANION GAP 10.3 mmol/L (8-16); BILIRUBIN - TOTAL 0.39 mg/dL (0.2-1.3); CALCIUM 7.8 mg/dL (8.5-10.1); CARBON DIOXIDE 30.7 mmol/L (21.0-32.0); CREATININE - SERUM 1.4 mg/dL (0.6-1.3); MAGNESIUM - SERUM 1.5 mg/dL (1.8-2.4); PROTEIN - SERUM 6.1 g/dL (6.4-8.2)
[2018-09-05 06:19] VITALS: BP 121/58
[2018-09-05 09:59] VITALS: BP 114/58
[2018-09-05 13:11] VITALS: BP 115/55
[2018-09-05 16:28] VITALS: BP 116/52
[2018-09-05] MEDS ORDERED: LEVAQUIN750 MG PO (19:39)
[2018-09-05] MEDS ORDERED: FLAGYL500 MG PO (19:40)
[2018-09-05] MEDS ORDERED: FLUTICASONE PRO16 GM NASAL (19:41)
[2018-09-05] MEDS ORDERED: MUCINEX600 MG PO (19:41)
[2018-09-05] MEDS ORDERED: FLORAJEN3 CAPS460 MG PO (19:42)
[2018-09-05] MEDS ORDERED: METAMUCIL PACKE1 PKT PO (19:42)
[2018-09-05] MEDS ORDERED: NYSTATIN1 PWD TOPICAL (19:43)
[2018-09-05] MEDS ORDERED: CALMOSEPTINE OI71 GM TOPICAL (19:43)
[2018-09-06 07:29] LABS: LUPUS - INTERPRETATION Comment: (()); LUPUS - THROMBIN NEUT 39.9 sec (0.0-23.0); LUPUS - THROMBIN TIME 34.1 sec (0.0-23.0); LUPUS - THROMBIN TIME MIX 20.7 sec (0.0-23.0); LUPUS - dRVVT CONFIRMATION 1.1 ratio (0.8-1.2); PTT-LA 51.2 sec (0.0-51.9)
[2018-09-08 09:08] LABS: EBV DNA QUANT PCR Negative (Negative)
[2018-09-11 20:07] LABS: FACTOR II DNA ANALYSIS Negative (())
== END 2018-09-05 21:40 | DRG 682 ==
LOC: D.ER 16:09 → D.M2 19:27 → D.ICU 19:27 → D.EDHOLD 19:27 → D.M2 19:42 → D.ICU 22:56 → D.M2 22:56 → D.REHAB 09-05 21:11 → D.M2 09-05 21:11 → D.REHAB 09-05 21:13 → D.M2 09-05 21:40
PROVIDERS: Emergency Medicine; Family Medicine; Internal Medicine Hematology & Oncology; Internal Medicine Nephrology; Student in an Organized Health Care Education/Training Program
DX: N17.0 Acute kidney failure with tubular necrosis (principal); J96.21 Acute and chronic respiratory failure with hypoxia; J18.9 Pneumonia, unspecified organism; Z68.45 Body mass index [BMI] 70 or greater, adult; N39.0 Urinary tract infection, site not specified; K92.2 Gastrointestinal hemorrhage, unspecified; E66.2 Morbid (severe) obesity with alveolar hypoventilation; J44.0 Chronic obstructive pulmonary disease with (acute) lower respiratory infection; J98.11 Atelectasis; E11.9 Type 2 diabetes mellitus without complications; I10 Essential (primary) hypertension; I95.9 Hypotension, unspecified; D64.9 Anemia, unspecified; E86.9 Volume depletion, unspecified; K76.0 Fatty (change of) liver, not elsewhere classified; E87.5 Hyperkalemia; Z79.01 Long term (current) use of anticoagulants; F17.200 Nicotine dependence, unspecified, uncomplicated; R19.00 Intra-abdominal and pelvic swelling, mass and lump, unspecified site; R16.1 Splenomegaly, not elsewhere classified; B27.00 Gammaherpesviral mononucleosis without complication; Z86.711 Personal history of pulmonary embolism

== ENCOUNTER 2018-09-05 21:40 | Inpatient (IN) | payer MEDICARE ==
[~2018-09-05] VITALS: Ht 172.7 cm; Wt 239.9 kg
--- NOTE | ~2018-09-05 | RHP ---
PATIENT: KATIA MARTINEZ MEDICAL RECORD: [id number] ACCOUNT: [id number] LOCATION:[facility]1118 : 66 ADMISSION DATE: 09/05/18 REHABILITATION HISTORY AND PHYSICAL EXAMINATION POST ADMISSION PHYSICIAN EXAMINATION DATE OF ADMISSION: 09/05/2018 ADMITTING DIAGNOSIS: Disuse myopathy. HISTORY OF PRESENT ILLNESS: The patient is a 47-year-old female patient with morbid obesity, obstructive sleep apnea, diabetes, history of PE and DVT and on chronic anticoagulant therapy, who presented with presyncope and complaints of red blood per rectum. She had reported episodic lightheadedness over the previous last year. She is on a combination of antihypertensive therapy prior to her acute hospital stay. Upon arrival, she had a systolic blood pressure of 70-80. She was given IV fluids and pressor support. She also had nausea and diarrhea. Her creatinine on admit was 5.4. She was Hemoccult positive, but she was not noted to be a candidate for endoscopy. It was felt possible hemorrhoids and been receiving treatment for this. She had nephrology consulted and followed her due to her increased creatinine and hyperkalemia. She has also been seen by oncology for her D-dimer at 1.86. She has been seen by pulmonary, secondary to worsening respiratory status and requiring increased amounts of supplemental O2. Also, ID saw her during her stay. She had extended stay in the ICU from 08/22/2018 to 08/24/2018. She has proximal muscle weakness. She was receiving occupational and physical therapy. She had problems with hypotension and tachycardia. She has required high flow O2 and IV fluids and medications. She was independent with her ADLs and mobility prior to this acute hospitalization. She is currently set up for max assist for ADLs and mod assist to total assist for mobility. She plans to return home with her prior level of function or better and she has some caregivers that are going to help with the housework, cooking, and ADLs as needed. 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 PAST MEDICAL HISTORY: Significant for a history of PE and DVT, obstructive sleep apnea, allergies, hypertension, GI bleed, chronic back pain, numbness, weakness, vertigo, seasonal allergies, hernia, bowel obstruction, problems with endometriosis. PAST SURGICAL HISTORY: Includes hysterectomy, herniorrhaphy, and a cyst removed. ALLERGIES: CODEINE. CURRENT MEDICATIONS: Include hydrochlorothiazide 12.5 mg daily, Zestril 20 mg daily, Xarelto 10 mg daily, Metamucil packet daily, metronidazole 1000 mg t.i.d., Calmoseptine as needed, Levaquin 750 mg daily, Floranex 460 daily, Mucinex 600 mg b.i.d., Wellbutrin 100 mg t.i.d., nystatin powder t.i.d. p.r.n., polyethylene glycol 17 grams in 8 ounces of water daily, and Flonase nasal HISTORY AND PHYSICAL [id number] KATIA MARTINEZ spray. HABITS: No current alcohol or tobacco use. FAMILY HISTORY: Noncontributory. SOCIAL HISTORY: The patient hopes to return back home and get back to her prior level of functioning. REVIEW OF SYSTEMS: GENERAL: Does complain of weakness and fatigue. HEENT: She denies cold, cough, or congestion. CARDIOVASCULAR: Denies chest pain. PHYSICAL EXAMINATION: VITAL SIGNS: Stable, afebrile. GENERAL: A morbidly obese female, in no acute distress, alert upon exam. HEENT: Normocephalic and atraumatic. Mucosa moist. NECK: Supple. No lymphadenopathy. LUNGS: Clear in upper macais. HEART: Regular rate and rhythm. ABDOMEN: Benign, although morbidly obese. EXTREMITIES: Does have peripheral edema. NEUROLOGIC: She has noted weakness and poor habitus. LABORATORY DATA: White count is 14.1, H&H of 9.8 and 32.1 and platelet count is 213. Her sodium is 134, potassium is 3.8, BUN and creatinine of 20 and 1.2, and blood sugar is noted to be 93. ASSESSMENT: A 47-year-old female patient admitted to rehab with a working diagnosis of disuse myopathy. The patient has potential to make improvement. We instituted the following multidisciplinary therapies including, but not limited to physical, occupational, respiratory, speech, nutritional services, prosthetics and orthotics. Given her complex medical condition and risk for more complications, rehabilitation services cannot be provided at a low level of care such as skilled nurse facility. PLAN: 1. Admit to [facility] for intensive inpatient therapy to include the following disciplines: A. Physical therapy to improve gait, all transfer skills and bed mobility to a modified independent level. B. Occupational therapy to improve activities of daily living to a modified independent level. C. Case management to assist with discharge planning and placement options. D. Nutrition to assist with nutritional needs. E. Rehabilitation nursing to assist in monitoring the patient's underlying medical conditions and to assist with any type of bowel or bladder management. 2. The patient's current medication and medical care will be continued. 3. The patient will be placed on standard fall precautions. 4. The patient's estimated length of stay is approximately 7-10 days. 5. We will discuss this patient during care team staff meeting this week. TRANSINT:[id number] Voice Confirmation ID: [id number] DOCUMENT ID: [id number] HISTORY AND PHYSICAL [id number] KATIA MARTINEZ notes whether there has been none or any medical/functional change since admission: - MAHENDRA attests patient continues to be appropriate for IRF: - KECIA FLORES MD at 1705 CC: [id number] DICTATION DATE: 09/06/18 0858 RN IMMUNOLOGY: 09/06/18 1033 ADM IN [place] [id number] [place] [address]
[~2018-09-05 21:40] MED LIST: BUPROPION HCL100 MG PO; CALMOSEPTINE OI71 GM TOPICAL; FLAGYL500 MG PO; FLORAJEN3 CAPS460 MG PO; FLUTICASONE PRO16 GM NASAL; LEVAQUIN750 MG PO; METAMUCIL PACKE1 PKT PO; MUCINEX600 MG PO; NYSTATIN1 PWD TOPICAL; PRINZIDE 20/12.1 TA1 PO; XARELTO10 MG PO
[2018-09-05 23:06] VITALS: BP 113/59; BMI 80.6
[2018-09-06 06:53] LABS: BASOPHILS 1.9 % (0-2); EOSINOPHILS 1.5 % (0-7); HEMATOCRIT 32.1 % (36.0-48.0); HEMOGLOBIN 9.8 g/dL (12-16); IMMATURE GRANULOCYTES 0.4 % (0-5); LYMPHOCYTES 63.8 % (15-50); MCH 28.1 pg (26.0-34.0); MCHC 30.5 g/dL (31.0-37.0); MEAN PLATELET VOLUME 9.8 fL (7.4-10.4); NEUTROPHILS 22.4 % (40-80); PLATELET COUNT 213 10x3/uL (130-400); RBC 3.49 10x6/uL (4.00-5.40); RDW 15.2 % (11.5-14.5); WBC 14.1 10x3/uL (4.8-10.8)
[2018-09-06 06:57] LABS: ANION GAP 5.4 mmol/L (8-16); CALCIUM 7.8 mg/dL (8.5-10.1); CARBON DIOXIDE 34.4 mmol/L (21.0-32.0); CREATININE - SERUM 1.2 mg/dL (0.6-1.3); POTASSIUM - SERUM 3.8 mmol/L (3.5-5.1)
[2018-09-06 08:38] VITALS: BP 116/67
[2018-09-06 13:58] VITALS: Ht 172.7 cm; Wt 239.9 kg
[2018-09-06 19:00] VITALS: BP 83/39
[2018-09-07 19:50] VITALS: BP 95/57
[2018-09-08 05:58] LABS: EOSINOPHILS 1.6 % (0-7); HEMATOCRIT 35.7 % (36.0-48.0); HEMOGLOBIN 10.8 g/dL (12-16); IMMATURE GRANULOCYTES 0.5 % (0-5); LYMPHOCYTES 65.2 % (15-50); MCHC 30.3 g/dL (31.0-37.0); MCV 92.5 fL (80.0-100.0); MONOCYTES 8.6 % (2-11); NEUTROPHILS 22.1 % (40-80); PLATELET COUNT 223 10x3/uL (130-400); RBC 3.86 10x6/uL (4.00-5.40); RDW 15.5 % (11.5-14.5); WBC 14.7 10x3/uL (4.8-10.8)
[2018-09-08 06:15] LABS: CALCIUM 8.4 mg/dL (8.5-10.1); CARBON DIOXIDE 32.4 mmol/L (21.0-32.0); CREATININE - SERUM 1.3 mg/dL (0.6-1.3)
[2018-09-08 06:16] LABS: POTASSIUM - SERUM 4.4 mmol/L (3.5-5.1)
[2018-09-08 07:51] VITALS: BP 103/46
[2018-09-08 23:06] VITALS: BP 114/56
[2018-09-09 08:10] VITALS: BP 107/42
[2018-09-09 09:07] LABS: ANION GAP 10.1 mmol/L (8-16); CALCIUM 8.1 mg/dL (8.5-10.1); CARBON DIOXIDE 29.5 mmol/L (21.0-32.0); CREATININE - SERUM 1.3 mg/dL (0.6-1.3); POTASSIUM - SERUM 3.6 mmol/L (3.5-5.1)
[2018-09-10 01:23] VITALS: BP 118/63
[2018-09-10 07:45] VITALS: BP 122/62
[2018-09-10 19:15] VITALS: BP 117/67
[2018-09-11 08:00] VITALS: BP 108/51
[2018-09-11 19:30] VITALS: BP 100/46
[2018-09-12 08:00] VITALS: BP 118/64
[2018-09-12 20:07] VITALS: BP 108/52
[2018-09-13 08:01] VITALS: BP 102/55
[2018-09-13 19:10] VITALS: BP 97/43
[2018-09-14 08:00] VITALS: BP 126/58
[2018-09-14 19:15] VITALS: BP 99/54
[2018-09-15 06:11] LABS: BASOPHILS 1.5 % (0-2); EOSINOPHILS 2.1 % (0-7); HEMATOCRIT 30.4 % (36.0-48.0); HEMOGLOBIN 9.5 g/dL (12-16); IMMATURE GRANULOCYTES 0.4 % (0-5); LYMPHOCYTES 61.1 % (15-50); MCH 28.3 pg (26.0-34.0); MCHC 31.3 g/dL (31.0-37.0); MCV 90.5 fL (80.0-100.0); MEAN PLATELET VOLUME 9.6 fL (7.4-10.4); MONOCYTES 12.3 % (2-11); NEUTROPHILS 22.6 % (40-80); RBC 3.36 10x6/uL (4.00-5.40); WBC 9.1 10x3/uL (4.8-10.8)
[2018-09-15 06:15] LABS: PLATELET COUNT 285 10x3/uL (130-400)
[2018-09-15 06:22] LABS: CALCIUM 8.9 mg/dL (8.5-10.1); CARBON DIOXIDE 31.1 mmol/L (21.0-32.0); CREATININE - SERUM 1.7 mg/dL (0.6-1.3); POTASSIUM - SERUM 4.1 mmol/L (3.5-5.1)
[2018-09-15 08:00] VITALS: BP 123/59
[2018-09-15] MEDS ORDERED: FUROSEMIDE20 MG PO (09:07)
== END 2018-09-15 10:30 | disposition home or self-care (01) | DRG 91 ==
LOC: D.REHAB 21:40 → D.SDCHOLD 09-08 12:41 → D.REHAB 09-08 12:45
PROVIDERS: Emergency Medicine
DX: G72.89 Other specified myopathies (principal); J96.21 Acute and chronic respiratory failure with hypoxia; J96.22 Acute and chronic respiratory failure with hypercapnia; J18.9 Pneumonia, unspecified organism; N39.0 Urinary tract infection, site not specified; J98.11 Atelectasis; N17.9 Acute kidney failure, unspecified; Z68.45 Body mass index [BMI] 70 or greater, adult; E66.01 Morbid (severe) obesity due to excess calories; G47.33 Obstructive sleep apnea (adult) (pediatric); R55 Syncope and collapse; D72.829 Elevated white blood cell count, unspecified; E87.5 Hyperkalemia; E83.42 Hypomagnesemia; G89.29 Other chronic pain; I95.9 Hypotension, unspecified; R53.1 Weakness; E88.09 Other disorders of plasma-protein metabolism, not elsewhere classified; R19.00 Intra-abdominal and pelvic swelling, mass and lump, unspecified site; I10 Essential (primary) hypertension; E28.0 Estrogen excess; Z86.711 Personal history of pulmonary embolism; Z79.01 Long term (current) use of anticoagulants; E11.65 Type 2 diabetes mellitus with hyperglycemia; J44.9 Chronic obstructive pulmonary disease, unspecified